=== PATIENT | female | born 1950 | race Caucasian/White ===

== ENCOUNTER 2016-07-09 09:23 | Emergency (ER) | payer MEDICARE, BC ==
[2016-07-09] MEDS ORDERED: traMADol 50 MG Tab ONE ×3 (09:45→13:19)
[2016-07-09] MEDS ORDERED: traMADol 50 MG Tab PO ONE (12:28)
[2016-07-09] MEDS ORDERED: Acetaminophen 325 MG Tab PO ONE (12:32)
[2016-07-09 12:47] VITALS: BP 133/68
--- NOTE | 2016-07-09 16:57 | ER ---
HISTORY OF PRESENT ILLNESS: A 65-year-old lady here with complaints of right hip pain that started yesterday. She states that there is no reason for the pain. She has not been doing any increase in activity and she has not had any falls or injuries. The pain became worse over the course of the night. She was unable to sleep most of the night, so she is here today for evaluation. The patient denies any previous history where she has a similar nature. OBJECTIVE: GENERAL APPEARANCE: The patient is awake and alert. She is walking in a guarded fashion due to her right hip pain. VITAL SIGNS: Reviewed and are normal. PHYSICAL EXAM: Examining the right hip, reveals pain involving the greater trochanter area and just distal to that on the lateral side of the hip. I cannot reproduce pain with palpation, but with movements such as walking or raising her leg, the pain is severe. The patient is able to lie down by guarding her right leg against her left leg. Straight leg raise is negative. Internal rotation is slightly uncomfortable for the patient. External rotation is pain free. Skin is warm and dry over this area. LABORATORY AND X-RAY DATA: X-ray of the hip was obtained and it appears normal. I do not see any acute bony abnormality or fracture. DIAGNOSIS: Hip pain which appears to be in the soft tissues, inflammatory in nature. TREATMENT PLAN: The patient was given Ultram 50 mg and Tylenol 650 mg. We monitored the patient for about 30 minutes and her pain has significantly improved. She still feels some tenderness, but is now able to walk with almost a smooth gait. The patient is pleased with the response. Previously to coming in, she has only tried taking aspirin one time. The patient will be discharged with some Ultram tablets. She is to use 50 mg every 8 hours for 1 day and then as needed, and Tylenol 650 mg to be used 3 times a day weaning down on this after she is done using the Ultram. Activity should be as tolerated. Heat should be applied for a few minutes every 3-4 hours as needed at home, and recheck should be in the clinic this coming week within a couple of days if her symptoms are not resolving. DAVE/MODL /[id number]
--- NOTE | 2016-07-10 07:48 | CR ---
DATE OF SERVICE: 07/09/16 CLINICAL DATA: Hip pain - no injury RIGHT HIP: There is diffuse osteopenia. Minimal osteoarthritic changes of the right hip joint. There are mild degenerative changes involving the right SI joint and symphysis pubis. No acute fracture or dislocation. No focal lytic or blastic bone lesions. [id number] [facility]
== END 2016-07-09 13:30 | disposition home or self-care (01) ==
LOC: LB.ED 09:23
DX: M25.551 Pain in right hip (principal)
CPT/HCPCS: 73502; 99283; A9270

== ENCOUNTER 2017-05-05 11:36 | Emergency (ER) | payer MEDICARE, BC ==
[2017-05-05] MEDS ORDERED: Azithromycin 250 MG Tab ONE (11:45)
[2017-05-05] MEDS ORDERED: Albuterol 8 GM Inhaler INH ONE ×2 (11:45→13:10)
[2017-05-05] MEDS ORDERED: predniSONE 10 MG Tab ONE (11:45)
[2017-05-05] MEDS ORDERED: Albuterol/Ipratropium 3.0-0.5 MG/3 ML Neb Soln NEB ONE (12:52)
[2017-05-05] MEDS ORDERED: Budesonide 0.5 MG/2 ML Neb Susp ONE (13:06)
[2017-05-05] MEDS ORDERED: Budesonide 0.5 MG/2 ML Neb Susp NEB ONE (13:06)
--- NOTE | 2017-05-05 20:14 | ER ---
HISTORY OF PRESENT ILLNESS: A 66-year-old lady here with complaints of coughing and some shortness of breath episodes for about the last week. She has been noticing some wheezing at times. The patient states she has never used an inhaler in her life. She is a smoker, but she quit when she became ill about a week ago. The patient denies running any fever. She has no problems with GI symptoms. CURRENT MEDICATIONS: Reviewed. ALLERGIES: IBUPROFEN AND LIDOCAINE. OBJECTIVE: GENERAL APPEARANCE: The patient is awake and alert. No respiratory distress at rest. VITAL SIGNS: Reviewed. O2 sats are 96%. Blood pressure 148/85. She is afebrile. HEENT: On physical exam; oral mucous membranes are moist. Posterior pharynx shows mild drainage and irritation. NECK: Supple. LUNG: Exam reveals deep breathing does induce coughing. I can hear wheezes throughout with the patient coughing. She is unable to take a deep breath very well at this time. INITIAL TREATMENT: DuoNeb was given to the patient. I listened to her lungs after the nebulizer treatment, and she cannot take a deep breath. She has end-expiratory rhonchi in both bases. The wheezes have totally resolved, and she is no longer coughing with taking a deep breath. DIAGNOSIS: Asthmatic bronchitis. TREATMENT PLAN: A Pulmicort treatment was given here as well in the ER. We will send the patient home with oral prednisone to take for a few days. I will give her a Z-Sigifredo, and she will be sent home with an albuterol inhaler. She is to use to 2 puffs q.i.d. for the first two days and then as needed. Recheck should be in 2-3 days if she is not obviously improving. If she is improving, recheck should be toward the end of next week. CRS/MODL /[id number]
== END 2017-05-05 13:43 | disposition home or self-care (01) ==
LOC: LB.ED 11:36
DX: J45.909 Unspecified asthma, uncomplicated (principal); Z88.6 Allergy status to analgesic agent; Z88.8 Allergy status to other drugs, medicaments and biological substances
CPT/HCPCS: 99283; A9270; J7620; J7626

== ENCOUNTER 2017-05-29 10:42 | Emergency (ER) | payer MEDICARE, BC ==
--- NOTE | 2017-05-29 11:06 | EDM.PDOC ---
ED HPI GENERAL MEDICAL PROBLEM - General Chief Complaint: Chest Pain Stated Complaint: chest pain Time Seen by Provider: 05/29/17 10:45 Source of Information: Reports: Patient History Limitations: Reports: No Limitations - History of Present Illness INITIAL COMMENTS - FREE TEXT/NARRATIVE: according to patient she claims that she has been having pain in her left lower chest on and off since around 10 am today. the pain is sharp and lasts for less than 5 secs and goes away and times she claims that she gets similar pain in the right lower chest. No fever or chills. No nausea or vomiting. No diaphoresis. No radiation of the pain to back, neck or jaw. The pain has not been constant at all. Does not get worse with exertion and even happens at rest. No fever or chills. No bodyaches. Pt claims that she has bronchitis and it almost took 2 and 1/2 weeks to clear up and just got better few days ago. Onset: Today Onset Date: 05/29/17 Onset Time: 09:30 Duration: Intermittent Quality: Reports: Sharp Severity: Mild Improves with: Reports: None Worsens with: Reports: None Associated Symptoms: Reports: Chest Pain, Cough. Denies: Confusion, Fever/ Chills, Headaches, Loss of Appetite, Malaise, Nausea/Vomiting, Rash, Seizure, Shortness of Breath, Syncope, Weakness - Related Data Allergies Allergy/AdvReac Type Severity Reaction Status Date / Time ibuprofen [From Advil] Allergy Fainting Verified 05/05/17 12:44 lidocaine Allergy Fainting Verified 05/05/17 12:44 Home Meds: Home Meds ALPRAZolam [Alprazolam] 0.25 mg PO DAILY 07/09/16 [History] Levothyroxine Sodium [Synthroid] 50 mcg PO DAILY 07/09/16 [History] Lisinopril/Hydrochlorothiazide [Lisinopril-Hctz 10-12.5 mg Tab] 10 - 12.5 mg PO DAILY 07/09/16 [History] Past Medical History HEENT History: Reports: Other (See Below) Other HEENT History: ringing in ears Cardiovascular History: Reports: Hypertension WARP TIER History: Reports: Psychiatric History: Reports: Anxiety Endocrine/Metabolic History: Reports: Hypothyroidism - Infectious Disease History Infectious Disease History: Reports: Measles, Mumps, Rubella - Past Surgical History Cardiovascular Surgical History: Reports: None Female Surgical History: Reports: Oophorectomy, Tubal Ligation Social & Family History - Family History Family Medical History: Noncontributory - Tobacco Use Smoking Status *Q: Current Every Day Smoker Years of Tobacco use: 40 Packs/Tins Daily: 1 Used Tobacco, but Quit: No Second Hand Smoke Exposure: No - Caffeine Use Caffeine Use: Reports: Coffee - Recreational Drug Use Recreational Drug Use: No ED ROS GENERAL - Review of Systems Review Of Systems: See Below Constitutional: Denies: Fever, Chills, Malaise HEENT: Denies: Rhinitis, Sinus Problem, Throat Pain Respiratory: Reports: Cough. Denies: Shortness of Breath, Wheezing, Sputum Cardiovascular: Reports: Chest Pain. Denies: Lightheadedness GI/Abdominal: Reports: Nausea. Denies: Abdominal Pain, Vomiting : Denies: Dysuria, Flank Pain, Frequency Musculoskeletal: Denies: Joint Pain, Joint Swelling Skin: Denies: Pruritis, Rash Neurological: Denies: Confusion, Dizziness, Headache, Numbness, Tingling, Weakness ED EXAM, GENERAL - Physical Exam Exam: See Below Exam Limited By: No Limitations General Appearance: Alert, WD/WN, No Apparent Distress Eye Exam: Bilateral Eye: EOMI, PERRL Ears: Normal External Exam, Normal Canal, Hearing Grossly Normal, Normal TMs Ear Exam: Bilateral Ear: Auricle Normal, Canal Normal, TM normal Nose: Normal Inspection, Normal Mucosa, No Blood Throat/Mouth: Normal Inspection, Normal Lips, Normal Teeth, Normal Gums, Normal Oropharynx, Normal Voice, No Airway Compromise Head: Atraumatic, Normocephalic Neck: Normal Inspection, Supple, Non-Tender, Full Range of Motion Respiratory/Chest: No Respiratory Distress, Lungs Clear, Normal Breath Sounds, No Accessory Muscle Use, Chest Non-Tender Cardiovascular: Normal Peripheral Pulses, Regular Rate, Rhythm, No Edema, No Gallop, No JVD, No Murmur, No Rub GI/Abdominal: Normal Bowel Sounds, Soft, Non-Tender, No Organomegaly, No Distention, No Abnormal Bruit, No Mass Extremities: Normal Inspection, Normal Range of Motion, Non-Tender, Normal Capillary Refill, No Pedal Edema Neurological: Alert, Oriented, CN II-XII Intact, Normal Cognition, Normal Gait, Normal Reflexes, No Motor/Sensory Deficits Skin Exam: Warm, Intact EKG INTERPRETATION EKG Date: 05/29/17 Time: 11:00 Rhythm: NSR Rate (Beats/Min): 58 [place]: Normal P-Wave: Present QRS: Normal ST-T: Normal QT: Normal EKG Interpretation Comments: sinus bradycardia Course - Vital Signs Text/Narrative:: Pt is 66 year old female with no PMH. She had sharp chest pain which is intermittent last for few seconds and goes away. does not get worse with exertion. No other constitutional symptoms. Her EKG does not show any acute cardiac changes and in sinus rhythm. Will get cardiac workup with troponin. Apparently, pt's Chest xray appear normal. Her CBC and CMP are normal troponin is negative. There is no acute cardiac symptoms or signs. She appear to have small episodes of less than 5 second intercoastal muscle spasms. HEr potassium and calcium is normal. this appears very non-specific. I have reassured. Started her on flexeril5 mg TID PRN.Side effects including drowsiness discussed. Avoid driving when on flexeril. Advised deep breathing exercise and followup in clinic for further workup. Last Recorded V/S: Last Vital Signs Temp 97.2 F 05/29/17 11:16 Pulse 53 L 05/29/17 11:16 Resp 20 05/29/17 11:16 BP 145/111 H 05/29/17 11:16 Pulse Ox 99 05/29/17 11:16 - Orders/Labs/Meds Orders: Active Orders 24 hr Category Date Time Status EKG Documentation Completion [RC] ASDIRECTED Care 05/29/17 11:02 Active Chest 2V [CR] Stat Exams 05/29/17 11:02 Taken Labs: Laboratory Tests 05/29/17 05/29/17 05/29/17 Range/Units 11:14 11:14 11:14 WBC 7.4 D (4.0-11.0) K/uL RBC 4.62 (3.80-5.80) M/uL Hgb 14.1 (11.5-16.5) g/dL Hct 40.9 (37.0-47.0) % MCV 89 (76-96) fL MCH 30.5 (27.0-32.0) pg MCHC 34.5 (31.0-35.0) g/dL RDW 12.5 (11.0-16.0) % Plt Count 263 (150-500) K/uL MPV 10.2 H (6.0-10.0) fL Neut % (Auto) 47.8 (45.0-70.0) % Lymph % (Auto) 40.0 (20.0-40.0) % [place] % (Auto) 7.5 (3.0-10.0) % Eos % (Auto) 3.9 (1.0-5.0) % Baso % (Auto) 0.8 H (0.0-0.5) % Neut # (Auto) 3.54 (2.00-7.50) K/uL Lymph # (Auto) 2.97 (1.50-4.00) K/uL [place] # (Auto) 0.56 (0.20-0.80) K/uL Eos # (Auto) 0.29 (0.04-0.40) K/uL Baso # (Auto) 0.06 (0.02-0.10) K/uL Sodium 142 (136-145) mmol/L Potassium 3.6 (3.5-5.1) mmol/L Chloride 102 (98-107) mmol/L Carbon Dioxide 29.0 (21.0-32.0) mmol/L Anion Gap 14.6 (5.0-15.0) mmol/L BUN 18 D (8-26) mg/dL Creatinine 1.02 (0.55-1.02) mg/dL Est Cr Clr Drug Dosing TNP Estimated GFR (MDRD) 54 L (>60) MLS/MIN BUN/Creatinine Ratio 17.6 (6-25) Glucose 98 (74-100) mg/dL Calcium 8.6 (8.5-10.1) mg/dL Total Bilirubin 0.4 D (0.0-1.0) mg/dL AST 22 (15-37) U/L ALT 21 (12-78) U/L Alkaline Phosphatase 92 (46-116) U/L Troponin I < 0.017 (0.000-0.060) ng/mL Total Protein 7.0 (6.4-8.2) g/dL Albumin 3.7 (3.4-5.0) g/dL Globulin 3.3 (2.2-4.2) g/dL Albumin/Globulin Ratio 1.1 (0.8-2.0) Meds: Medications Discontinued Medications Generic Name Dose Route Start Last Admin Trade Name Mray PRN Reason Stop Dose Admin Cyclobenzaprine HCl Confirm 05/29/17 12:20 Flexeril Administered 05/29/17 12:21 Dose 10 mg .ROUTE .STK-MED ONE Departure - Departure Time of Disposition: 12:15 Disposition: Home, Self-Care 01 Condition: Fair Clinical Impression: Intercostal myalgia, Atypical chest pain - Discharge Information Referrals: PCP,None [Primary Care Provider] - Forms: ED Department Discharge Additional Instructions: Flexaril 5mg 3 times a day as needed. - Problem List & Annotations (1) Intercostal myalgia SNOMED Code(s): 01784346 Code(s): M79.1 - MYALGIA Status: Acute Current Visit: Yes - Problem List Review Problem List Initiated/Reviewed/Updated: Yes - My Orders Last 24 Hours: My Active Orders 05/29/17 11:02 EKG Documentation Completion [RC] ASDIRECTED Chest 2V [CR] Stat - Assessment/Plan Last 24 Hours: My Active Orders 05/29/17 11:02 EKG Documentation Completion [RC] ASDIRECTED Chest 2V [CR] Stat Assessment:: Chest pain- Intercostal muscle spasm Plan: Pt is 66 year old female with no PMH. She had sharp chest pain which is intermittent last for few seconds and goes away. does not get worse with exertion. No other constitutional symptoms. Her EKG does not show any acute cardiac changes and in sinus rhythm. Will get cardiac workup with troponin. Apparently, pt's Chest xray appear normal. Her CBC and CMP are normal troponin is negative. There is no acute cardiac symptoms or signs. She appear to have small episodes of less than 5 second intercoastal muscle spasms. HEr potassium and calcium is normal. this appears very non-specific. I have reassured. Started her on flexeril5 mg TID PRN.Side effects including drowsiness discussed. Avoid driving when on flexeril. Advised deep breathing exercise and followup in clinic for further workup.
[2017-05-29] MEDS ORDERED: Cyclobenzaprine 10 MG Tab ONE (12:20)
--- NOTE | 2017-05-29 15:08 | CR ---
DATE OF SERVICE: 05/29/17 CLINICAL DATA: cough with chest pain PA AND LATERAL CHEST: The heart size is normal. There is calcification of the aortic arch. The lungs are mildly hyperexpanded, but clear. No evidence of acute intrathoracic disease. [id number] [facility]
== END 2017-05-29 12:08 | disposition home or self-care (01) ==
LOC: LB.ED 10:42
DX: R07.89 Other chest pain (principal); M79.1 Myalgia; M62.838 Other muscle spasm; I10 Essential (primary) hypertension; E03.9 Hypothyroidism, unspecified; F17.210 Nicotine dependence, cigarettes, uncomplicated; Z88.8 Allergy status to other drugs, medicaments and biological substances; Z79.899 Other long term (current) drug therapy
CPT/HCPCS: 36415; 71046; 80053; 84484; 85025; 93005; 99284; 99285-25

== ENCOUNTER 2019-06-14 16:23 | Emergency (ER) | payer MEDICARE ==
[2019-06-14] MEDS ORDERED: predniSONE 10 MG Tab ONE (17:00)
[2019-06-14] MEDS ORDERED: Benzonatate 100 MG Cap ONE (17:00)
[2019-06-14] MEDS ORDERED: Albuterol 8 GM Inhaler INH ONE (17:00)
[2019-06-14] MEDS ORDERED: Albuterol/Ipratropium 3.0-0.5 MG/3 ML Neb Soln NEB SCH (17:15)
--- NOTE | 2019-06-14 20:13 | ER ---
REASON FOR EMERGENCY ROOM VISIT: Cough, shortness of breath, and low-grade fever. HISTORY: This is a 68-year-old woman who was seen by Dr. Noble yesterday in the clinic. She is a lifelong smoker. Yesterday morning, overnight, she had developed some coughing that was mild in nature with some associated shortness of breath. It was occasionally productive of whitish sputum. She saw Dr. Noble in the clinic, who evaluated her and noted her to have some diffuse wheezing. No chest x-ray was obtained at that time, but a flu swab was obtained, and she was negative for influenza A and B. She has not had any travel outside of the state or any exposure to anyone who has traveled or been on any cruises nor has she been exposed to anyone who has exhibited any respiratory type illness over the last 2 weeks. She was started on Symbicort yesterday and also started on levofloxacin 750 mg p.o. daily. She has never been told she has COPD, although she has suspected it. She has had a low-grade fever in the range of 100-100.8 since yesterday. She has had some occasional episodes of nausea after coughing paroxysms, but no vomiting. She denies any diarrhea. She denies any chest pain. PAST MEDICAL HISTORY: 1. Lifelong smoker. 2. History of intercostal myalgia. 3. Atypical chest pain. 4. Hip pain. MEDICATIONS: Include: 1. Symbicort. 2. Lisinopril. 3. Levothyroxine. 4. Alprazolam. ALLERGIES: TO IBUPROFEN AND IODINE. REVIEW OF SYSTEMS: Pertinent positives and negatives as listed in the HPI. PHYSICAL EXAMINATION: VITAL SIGNS: Her temperature is 100.6, heart rate is 107, blood pressure 158/101, O2 sats 96% on room air, respiratory rate 20. HEENT: Head is normocephalic. No conjunctival injection. Oropharynx is normal. TMs are normal. NECK: Supple. There is no JVD. No adenopathy is noted. CHEST: She does have decreased air exchange bilaterally and rare scattered wheezes bilaterally as well. No rhonchi were heard. Breath sounds are equal bilaterally. CARDIAC: Regular rate without murmur. ABDOMEN: Soft and nontender with no hepatosplenomegaly. SKIN: No rashes. DIAGNOSTIC DATA: Chest x-ray shows some flattening of the diaphragms. No acute infiltrative process is evident. Findings were felt to be consistent with COPD. IMPRESSION: Possible acute exacerbation of chronic obstructive pulmonary disease. She needs to be evaluated for chronic obstructive pulmonary disease obviously, and this can be done as an outpatient with pulmonary function testing. In addition, the low-grade fever makes the possibility of a bronchitis a viral infection or even a community-acquired pneumonia, that are early distinct possibilities. PLAN: She and Dr. Noble had discussed oral steroids. She did not want them. They decided against it at that time, but he thought it was worthwhile consideration. I agree with that, and we will send her home on prednisone 10 mg dispensed #15, four tablets p.o. daily. She should be followed up in the clinic on Sunday, and I emphasized the importance of that to her. She did have a flu swab, so that does not have to be repeated. Additionally, I gave her an albuterol inhaler and told to hold off on the Symbicort for now, and instructed her on the use of the inhaler. I gave her some Tessalon Perles 100 mg dispensed #15, 1 every 8 hours p.r.n. She was instructed to continue with her levofloxacin. Should any problems or questions arise or should she worsen, she should return for another evaluation. All questions were answered. She agrees with this plan. NING /[id number]
--- NOTE | 2019-06-15 08:46 | CR ---
DATE OF SERVICE: 06/14/19 CLINICAL DATA: cough PA AND LATERAL CHEST: Comparison is made to a prior exam dated 05/29/17. The heart size is normal. There is calcification of the aortic arch. The lungs are hyperexpanded, but clear. No pneumothorax. No pleural effusions. No other significant findings. IMPRESSION: Findings consistent with COPD. No acute abnormalities. [id number] [facility]
== END 2019-06-14 18:10 | disposition home or self-care (01) ==
LOC: LB.ED 16:23
DX: R06.02 Shortness of breath (principal); R05 Cough; R50.9 Fever, unspecified; Z88.6 Allergy status to analgesic agent; Z79.899 Other long term (current) drug therapy
CPT/HCPCS: 71046; 99283; 99285; A9270

== ENCOUNTER 2022-02-11 11:00 | Emergency (ER) | payer MEDICARE ==
[2022-02-11] MEDS: Albuterol/Ipratropium 3.0-0.5 MG/3 ML Neb Soln NEB PRN ×2 (11:45→12:47)
[2022-02-11 12:48] LABS: ESTIMATED GFR 75 mL/min (>60)
[2022-02-11] MEDS ORDERED: Azithromycin 250 MG Tab ONE (13:00)
[2022-02-11] MEDS ORDERED: Albuterol/Ipratropium 3.0-0.5 MG/3 ML Neb Soln ONE ×2 (13:00→13:33)
== END 2022-02-11 13:25 | disposition home or self-care (01) ==
LOC: LB.ED 11:00
DX: J44.1 Chronic obstructive pulmonary disease with (acute) exacerbation (principal); F17.210 Nicotine dependence, cigarettes, uncomplicated; I10 Essential (primary) hypertension; E03.9 Hypothyroidism, unspecified; Z88.5 Allergy status to narcotic agent; Z88.6 Allergy status to analgesic agent; Z88.4 Allergy status to anesthetic agent; Z79.899 Other long term (current) drug therapy
CPT/HCPCS: 36415; 71045; 80048; 83880; 85027; 99285; A9270; U0002; J7620

== ENCOUNTER 2023-02-10 19:43 | Emergency (ER) | payer MEDICARE | END 2023-02-10 20:35 | disposition home or self-care (01) | LOC: SUPCPDRO 19:43 → LB.ED 19:43 | DX: F41.9 Anxiety disorder, unspecified (principal); I10 Essential (primary) hypertension; J44.9 Chronic obstructive pulmonary disease, unspecified; Z87.891 Personal history of nicotine dependence; E03.9 Hypothyroidism, unspecified; Z79.899 Other long term (current) drug therapy; Z88.5 Allergy status to narcotic agent; Z88.6 Allergy status to analgesic agent; Z88.4 Allergy status to anesthetic agent | CPT/HCPCS: 99283 ==

== ENCOUNTER 2024-02-14 10:34 | Emergency (ER) | payer MEDICARE ==
[2024-02-14] MEDS ORDERED: Sodium Chloride 0.9% 10 ML Syringe FLUSH PRN (11:43)
[2024-02-14] MEDS: hydrALAZINE 20 MG/ML SDV IVPUSH ONE (11:46)
[2024-02-14 11:52] LABS: APPEARANCE,URINE CLEAR (CLEAR); BILIRUBIN,URINE NEGATIVE (NEGATIVE); COLOR,URINE YELLOW; GLUCOSE,URINE NEGATIVE (NEGATIVE); KETONES,URINE NEGATIVE (NEGATIVE); LEUKOCYTE ESTERASE,URINE NEGATIVE (NEGATIVE); NITRITE,URINE NEGATIVE (NEGATIVE); OCCULT BLOOD,URINE NEGATIVE (NEGATIVE); PH,URINE 6.5 (5.0-8.0); PROTEIN,URINE NEGATIVE (NEGATIVE); UROBILINOGEN,URINE 0.2 E.U./dL (0.2-1.0)
[2024-02-14 11:54] LABS: BASOPHILS ABSOLUTE AUTO 0.06 K/uL (0.02-0.10); BASOPHILS PERCENT AUTO 0.6 % (0.0-0.5); EOSINOPHILS ABSOLUTE AUTO 0.19 K/uL (0.04-0.40); EOSINOPHILS PERCENT AUTO 1.8 % (1.0-5.0); HEMATOCRIT 44.5 % (37.0-47.0); HEMOGLOBIN 14.9 g/dL (11.5-16.5); LYMPHOCYTES ABSOLUTE AUTO 2.54 K/uL (1.50-4.00); LYMPHOCYTES PERCENT AUTO 24.1 % (20.0-40.0); MEAN CORPUSCULAR HEMOGLOBIN 29.7 pg (27.0-32.0); MEAN CORPUSCULAR HGB CONC 33.5 g/dL (31.0-35.0); MEAN CORPUSCULAR VOLUME 89 fL (76-96); MEAN PLATELET VOLUME 10.4 fL (6.0-10.0); MONOCYTES ABSOLUTE AUTO 0.59 K/uL (0.20-0.80); MONOCYTES PERCENT AUTO 5.6 % (3.0-10.0); NEUTROPHILS ABSOLUTE AUTO 7.18 K/uL (2.00-7.50); NEUTROPHILS PERCENT AUTO 67.9 % (45.0-70.0); PLATELET COUNT,PLT 292 K/uL (150-500); RED BLOOD CELL COUNT 5.01 M/uL (3.80-5.80); WHITE BLOOD CELL COUNT,WBC 10.6 K/uL (4.0-11.0)
[2024-02-14 12:17] LABS: A/G RATIO 1.2 (0.8-2.0); ALBUMIN 4.3 g/dL (3.4-5.0); ANION GAP 9.1 mmol/L (5.0-15.0); BILIRUBIN TOTAL 0.3 mg/dL (0.0-1.0); BUN/CREATININE RATIO 19.6 (6-25); CALCIUM 9.4 mg/dL (8.5-10.1); CARBON DIOXIDE,CO2 32.9 mmol/L (21.0-32.0); CREATININE 0.97 mg/dL (0.55-1.02); EST CRCL DRUG DOSING (CG) 36.62 mL/min; MAGNESIUM 2.2 mg/dL (1.8-2.4); PROTEIN TOTAL,TP 7.9 g/dL (6.4-8.2); TROPONIN I HIGH SENSITIVITY 5.2 pg/ml (<=60.4)
[2024-02-14] MEDS: Ondansetron 4 MG/2 ML SDV ONE (12:39)
[2024-02-14] MEDS: diazePAM 5 MG/ML MDV ONE (12:39)
[2024-02-14] MEDS: Ondansetron 4 MG Tab.DIS PO ONE (12:40)
[2024-02-14] MEDS: Ondansetron 4 MG Tab.DIS ONE (13:06)
[2024-02-14] MEDS: Sodium Chloride 0.9% 50 ML SDV FLUSH ONE (13:12)
[2024-02-14] MEDS: Iopamidol 612 MG/ML 100 ML Bottle IV SCH (13:12)
== END 2024-02-14 14:08 | disposition home or self-care (01) ==
LOC: LB.ED 10:34
DX: F41.9 Anxiety disorder, unspecified (principal); I10 Essential (primary) hypertension; J44.9 Chronic obstructive pulmonary disease, unspecified; E03.9 Hypothyroidism, unspecified; Z87.891 Personal history of nicotine dependence; Z79.899 Other long term (current) drug therapy; Z88.5 Allergy status to narcotic agent; Z88.6 Allergy status to analgesic agent; Z88.4 Allergy status to anesthetic agent
CPT/HCPCS: 36415; 74177; 80053; 81003; 83735; 84484; 85025; 93005; 96374; 96375; 99284; J0360; J3360; J3490; Q0162; Q9967; 93010